=== PATIENT | male | born 1975 | race Caucasian/White ===

== ENCOUNTER 2016-04-21 23:20 | Emergency (ER) | payer OTHER ==
[~2016-04-21] VITALS: Ht 170.2 cm; Wt 57.0 kg
[2016-04-22 00:53] VITALS: BP 142/98
== END 2016-04-22 00:54 | disposition home or self-care (01) ==
LOC: EME 23:20
PROC: 0HQ1XZZ Repair Face Skin, External Approach (ICD-10-PCS; principal; 2016-04-22)
PROC: 3E0234Z Introduction of Serum, Toxoid and Vaccine into Muscle, Percutaneous Approach (ICD-10-PCS; 2016-04-22)
DX: S01.111A Laceration without foreign body of right eyelid and periocular area, initial encounter (principal); S61.011A Laceration without foreign body of right thumb without damage to nail, initial encounter; W19.XXXA Unspecified fall, initial encounter; F10.99 Alcohol use, unspecified with unspecified alcohol-induced disorder; Z23 Encounter for immunization; F17.200 Nicotine dependence, unspecified, uncomplicated
CPT/HCPCS: 99281; 99284